=== PATIENT | male | born 1985 | race Caucasian/White ===

== ENCOUNTER 2017-10-20 09:46 | Emergency (ER) | payer SELFPAY ==
[~2017-10-20] VITALS: Ht 167.6 cm; Wt 99.8 kg
[2017-10-20] MEDS ORDERED: SUBOXONE 8 MG-1 EACH SL (09:54)
== END 2017-10-20 11:46 ==
LOC: ED 09:46
DX: S63.502A Unspecified sprain of left wrist, initial encounter (principal); S60.511A Abrasion of right hand, initial encounter; V69.9XXA Occupant (driver) (passenger) of heavy transport vehicle injured in unspecified traffic accident, initial encounter; Y93.39 Activity, other involving climbing, rappelling and jumping off; Y92.89 Other specified places as the place of occurrence of the external cause; Y99.8 Other external cause status

== ENCOUNTER 2018-06-30 10:53 | Emergency (ER) | payer SELFPAY ==
[~2018-06-30] VITALS: Wt 98.9 kg
[~2018-06-30 10:53] MED LIST: SUBOXONE 8 MG-1 EACH SL
== END 2018-06-30 11:34 | disposition home or self-care (01) ==
LOC: ED 10:53
DX: S61.411A Laceration without foreign body of right hand, initial encounter (principal); W23.0XXA Caught, crushed, jammed, or pinched between moving objects, initial encounter; Y93.89 Activity, other specified; Y92.89 Other specified places as the place of occurrence of the external cause; Y99.9 Unspecified external cause status